=== PATIENT | female | born 1985 | race Caucasian/White ===

== ENCOUNTER → 2020-07-15 | Outpatient (CLI) | payer OTHER ==
[~2020-07-15] MED LIST: CLARITIN 1010 MG/TAB PO; FLONASEALLERGY NS; ZYRTEC ALLERGY10 MG PO
== END ==
LOC: COL.RAD
DX: N80.3 Endometriosis of pelvic peritoneum (principal); Z90.721 Acquired absence of ovaries, unilateral
CPT/HCPCS: Q9967